=== PATIENT | male | born 1995 | race Caucasian/White ===

== ENCOUNTER 2021-11-05 12:10 | Emergency (ER) | payer OTHER ==
[~2021-11-05] VITALS: Ht 170.2 cm; Wt 59.0 kg
[2021-11-05] MEDS ORDERED: KETOROLAC TROMETHAMINE 15 MG INJ IM ONE (12:30)
[2021-11-05] MEDS ORDERED: DIAZEPAM 10 MG/2 ML DISP.SYRIN IM ONE (12:30)
[2021-11-05] MEDS ORDERED: IBUP-1955 PO ×2 (12:32→13:46)
[2021-11-05] MEDS ORDERED: CYCL5TAB PO ×2 (12:32→13:46)
[2021-11-05] MEDS ORDERED: DIAZEPAM 10 MG/2 ML DISP.SYRIN ONE (12:33)
[2021-11-05] MEDS ORDERED: KETOROLAC TROMETHAMINE 15 MG INJ ONE (12:33)
--- NOTE | 2021-11-05 12:43 | NUR ---
DR GOMEZ AT BEDSIDE FOR EVALUATION.
[2021-11-05] MEDS ORDERED: HYDROCODONE/APAP 5-325MG TABLET PO ONE (13:15)
[2021-11-05] MEDS ORDERED: HYDROCODONE/APAP 5-325MG TABLET ONE (13:39)
--- NOTE | 2021-11-05 14:07 | NUR ---
Patient discharged to home in stable condition. Written and verbal after care instructions given. Patient verbalizes understanding of instructions. Advised not to drive home at this time. Stressed follow up or return to ER for worsening s/s.
[2021-11-05 14:28] VITALS: BP 121/63
== END 2021-11-05 14:50 | disposition home or self-care (01) ==
LOC: ER 12:10
DX: M54.9 Dorsalgia, unspecified (principal)
CPT/HCPCS: 96372 ×2; 99284; J1885; J3360; A4663